=== PATIENT | male | born 1985 | race American Indian/Alaskan Native ===

== ENCOUNTER 2020-10-14 16:50 | Emergency (ER) | payer BC ==
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
[2020-10-14 18:39] LABS: Basophils % (Auto) 0.2 % (0.0-1.8); Eosinophils % (Auto) 0.3 % (0.0-4.3); Hematocrit 44.8 % (35.5-45.6); Hemoglobin 15.6 gm/dl (11.8-15.2); Lymphocytes # (Auto) 2.4 K/mm3 (1.2-5.4); Lymphocytes % (Auto) 28.7 % (13.4-35.0); Mean Corpuscular HGB Conc 35 % (32-34); Mean Corpuscular Volume 89 fl (84-94); Monocytes # (Auto) 0.6 K/mm3 (0.0-0.8); Monocytes % (Auto) 7.4 % (0.0-7.3); Platelet Count 302 K/mm3 (140-440); Red Blood Count 5.05 M/mm3 (3.65-5.03); Red Cell Distribution Width 14.2 % (13.2-15.2)
[2020-10-14 18:58] LABS: Alanine Aminotransferase 24 units/L (7-56); Albumin 4.6 g/dL (3.9-5); BUN/Creatinine Ratio 11; Blood Urea Nitrogen 11 mg/dL (9-20); Calcium 9.6 mg/dL (8.4-10.2); Hemolysis Index 4
[2020-10-14] MEDS ORDERED: HALOPERIDOL LACTATE 5 MG/1 ML INJ IM PRN (19:01)
[2020-10-14] MEDS ORDERED: LORazepam 2 MG/ML VIAL IM PRN (19:01)
[2020-10-14] MEDS ORDERED: POTASSIUM CHLORIDE ER 20 MEQ TAB PO ONE (19:02)
[2020-10-14] MEDS ORDERED: ALPRAZolam 1 MG TAB PO ONE (19:03)
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
[2020-10-14] MEDS ORDERED: ZIPRASIDONE 20 MG CAP PO ONE (19:52)
--- NOTE | 2020-10-14 22:28 | XRay Report ---
CHEST 2 VIEWS INDICATION / CLINICAL INFORMATION: Hallucinations and suicidal ideation. Anxiety and tachycardia. Psy ch clearance. COMPARISON: None available. FINDINGS: SUPPORT DEVICES: None. HEART / MEDIASTINUM: The heart size and pulmonary vasculature are normal. LUNGS / PLEURA: No significant pulmonary or pleural abnormality. No pneumothorax. ADDITIONAL FINDINGS: No significant additional findings. IMPRESSION: No acute findings. Signer Name: Dima Lynn MD Signed: 10/14/2020 10:24 PM Workstation Name: [id number]
[2020-10-15 08:33] LABS: Bilirubin,Urine NEG (Negative); Blood,Urine NEG (Negative); Color,Urine Yellow (Yellow); Hyaline Casts,Urine 3 /LPF; Mucus,Urine 3+ /HPF; Protein,Urine <15 mg/dL mg/dL (Negative); Urobilinogen,Urine < 2.0 mg/dL (<2.0)
[2020-10-15 08:41] LABS: Amphetamine Screen,Urine Negative; Cannabinoid Screen,Urine Negative; Cocaine Screen,Urine Negative; Methadone Screen,Urine Negative; Opiate Screen,Urine Negative
[2020-10-15 08:53] LABS: Benzodiazepines Screen,Urine Positive
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
[2020-10-15] MEDS ORDERED: amLODIPine 5 MG TAB PO SCH (10:00)
[2020-10-15] MEDS: POTASSIUM CHLORIDE ER 20 MEQ TAB PO SCH (10:31)
[2020-10-15] MEDS: risperiDONE 0.25 MG TAB PO SCH ×2 (10:31→22:21)
--- NOTE | 2020-10-15 13:30 | Event Note ---
S: "I feel good. When will lunch be served" O: Stable vital signs, patient A: Schizoaffective disorder P: Mental health team recommended acute inpatient psychiatric hospitalization, 1013 form completed by ED physician, patient is medically clear for psychiatric care,
[2020-10-15] MEDS ORDERED: LIDOCAINE-MPF (1%) 10 MG/1 ML VIAL 5 ML INFILTRATI ONE ×2 (16:18→20:00)
[2020-10-15] MEDS ORDERED: AZITHROMYCIN 250 MG TAB PO ONE (20:00)
[2020-10-15] MEDS ORDERED: ACETAMINOPHEN 325 MG TAB PO PRN (21:32)
[2020-10-15] MEDS: AZITHROMYCIN 250 MG TAB PO ONE ×2 (21:46→21:48)
[2020-10-15] MEDS ORDERED: traZODone 50 MG TAB PO SCH (22:00)
[2020-10-16 09:55] VITALS: BP 159/69
--- NOTE | 2020-10-16 10:02 | Progress Note ---
Subjective - Reason for Consult Consult date: 10/16/20 Reason for consult: psychosis - Chief Complaint Chief complaint: Per Nursing staff: The patient states the medication has been helping him, he denies SI/HI During my interview with the patient today, he is calm and cooperative. He is lucid. The patient states "I'm doing a lot better now that I've been taking the medication." He says "I don't see or hear any voices at." The patient says "but at times I do feel something crawl on me every now and then." The patient denies SI/HI. He says "I wanted to make sure you understand that I wouldn't hurt myself or yesterday." He say "before with the incident of my , I was feeling like things were saying that, but I know now that I'm in control." He says "I won't give in to voices again." The patient denies any fear or feelings of endangerment for himself or anybody else. He says he's been sleeping well and verbalized feeling better about his situation. He states "those meds have really been working." REVIEW OF SYSTEMS Constitutional: Negative for weight loss ENT: Negative for stridor Respiratory: Negative for cough or hemoptysis All other systems reviewed and are negative MENTAL STATUS EXAMINATION General Appearance and Behavior: Age appropriate, good hygiene, wearing appropriate clothes, good eye contact Cooperation: Participating/engaged Psychomotor Behavior: Psychomotor normal Mood: "a lot better, feel better about the situation" Affect and affective range: congruent with stated mood Thought Process: Goal directed Thought Content: None Speech: Normal rate, volume and rythm Intellectual Functioning: Average Suicidal Ideation: Denies Homicidal Ideation: Denies Hallucinations: tactile Delusions: None elicited Impulse Control: Limited Insight and Judgment: Limited insight and judgment Memory: Normal Attention: Normal Orientation: Alert, oriented Assessment Schizoaffective Disorder Treatment Plan Risperidone 0.5mg po BID Trazodone 50mg po qhs Risks, benefits and alternatives of medications discussed with the patient, questions answered and consent obtained from patient. PSYCHOTHERAPY: Supportive psychotherapy provided MEDICAL: Per primary team DELIRIUM PRECAUTIONS: Please re-orient patient frequently, keep lights on during the day, and minimize benzodiazepines and opiates as these medications could worsen patient's confusion. 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 The patient understands that if SI/HI or any fear of endangerment are to arise he is to seek immediate assistance including but not limited to 911/ER or crisis hotline. The patient is to follow up in 7 to 14 days upon discharge The cook box filler is to further discuss safety plan and give outpatient resources, including CBT Will sign off. Thank you for the consult. Please contact with any questions and/or concerns. Case staffed with Dr. Vogel Mental Status Exam - Vital signs Last Vital Signs Temp 97.8 F 10/16/20 08:00 Pulse 88 10/16/20 08:00 Resp 20 10/16/20 08:00 BP 159/69 10/16/20 08:00 Pulse Ox 100 10/16/20 08:00
--- NOTE | 2020-10-16 10:37 | Emergency Department Report ---
Blank Doc - Documentation Documentation: No new events No new complaints Awaiting placement
--- NOTE | 2020-10-16 10:38 | Electrocardiograph Report ---
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
[2020-10-16] MEDS: POTASSIUM CHLORIDE ER 20 MEQ TAB PO SCH (11:00)
[2020-10-16] MEDS: risperiDONE 0.25 MG TAB PO SCH (11:00)
--- NOTE | 2020-10-16 13:00 | Event Note ---
I reevaluated the patient myself at 12:50 PM. Patient states he is no longer having auditory hallucinations after receiving medications for the last 2 days. Patient denies wanting to hurt himself or others. Patient will be discharge per the recommendation made by psych
== END 2020-10-16 15:00 | disposition home or self-care (01) ==
LOC: ED 16:50
DX: U07.1 COVID-19 (principal); E87.6 Hypokalemia; R82.81 Pyuria; Z04.6 Encounter for general psychiatric examination, requested by authority; I10 Essential (primary) hypertension; F17.200 Nicotine dependence, unspecified, uncomplicated
CPT/HCPCS: 36415; 71046; 80053; 80307; 81001; 82550; 83735; 84443; 85025; 87086; 87591; 93005; 96372; 99285; J0696; U0003; 80320; G0480